=== PATIENT | male | born 1975 | race African-American/Black ===

== ENCOUNTER 2017-02-13 11:23 | Emergency (ER) | payer SELFPAY ==
[~2017-02-13] VITALS: Ht 190.5 cm; Wt 83.0 kg
[2017-02-13 12:29] VITALS: BP 123/75
== END 2017-02-13 14:26 | disposition home or self-care (01) ==
LOC: ER 13:55
DX: S46.812A Strain of other muscles, fascia and tendons at shoulder and upper arm level, left arm, initial encounter (principal); X50.0XXA Overexertion from strenuous movement or load, initial encounter; Y93.89 Activity, other specified; Y92.89 Other specified places as the place of occurrence of the external cause; Y99.8 Other external cause status
CPT/HCPCS: 99283

== ENCOUNTER 2019-02-13 07:32 | Emergency (ER) | payer SELFPAY ==
[~2019-02-13] VITALS: Ht 188 cm; Wt 76.0 kg
[2019-02-13] MEDS ORDERED: SODIUM CHLORIDE 0.9% 1,000 ML IV ONE (08:41)
[2019-02-13 08:58] LABS: BASOPHILS % 0.5 % (0.0-2.0); EOSINOPHILS % 0.8 % (0.0-5.0); HEMATOCRIT. 39.8 % (42.0-52.0); HEMOGLOBIN. 12.9 g/dL (14.0-18.0); LYMPHOCYTES % 19.8 % (20.0-50.0); MEAN CORPUSCULAR HEMOGLOBIN 25.7 pg (28.0-32.0); MEAN CORPUSCULAR VOLUME 79.5 fL (80.0-94.0); MEAN PLATELET VOLUME 8.1 fl (7.4-10.4); MONOCYTES % 4.1 % (2.0-8.0); NEUTROPHILS % 74.8 % (40.0-76.0); PLATELET 349 x1000/uL (130-400); RED CELL DISTRIBUTION WIDTH 15.4 % (11.6-14.6)
[2019-02-13 09:05] LABS: CHLORIDE 104 mEq/L (98-107)
[2019-02-13 10:09] VITALS: BP 121/81
== END 2019-02-13 10:44 | disposition home or self-care (01) ==
LOC: ER 07:54
DX: R53.1 Weakness (principal)
CPT/HCPCS: 36415; 71045; 80053; 85025; 93005; 96360; 99284; J7030

== ENCOUNTER 2019-02-18 02:25 | Emergency (ER) | payer MEDICAID ==
[~2019-02-18] VITALS: Ht 188 cm; Wt 80.0 kg
[2019-02-18 09:42] VITALS: BP 128/67
== END 2019-02-18 09:51 | disposition left against medical advice (07) ==
LOC: ER 02:25
DX: R53.1 Weakness (principal)
CPT/HCPCS: 99283

== ENCOUNTER 2019-02-19 17:02 | Emergency (ER) | payer MEDICAID ==
[~2019-02-19] VITALS: Ht 182.9 cm; Wt 86.0 kg
[2019-02-19 17:21] VITALS: BP 121/88
[2019-02-19 17:59] LABS: CLARITY URINE CLEAR (CLEAR); COLOR URINE DARK YELLOW (YELLOW); KETONES URINE NEGATIVE (NEGATIVE); LEUKOCYTE ESTERASE URINE NEGATIVE (NEGATIVE); NITRITE URINE NEGATIVE (NEGATIVE); OCCULT BLOOD URINE NEGATIVE (NEGATIVE); PROTEIN URINE 1+ (NEGATIVE); SPECIFIC GRAVITY URINE 1.037 (1.005-1.030)
[2019-02-19 18:13] LABS: *AMPHETAMINES SCREEN URINE NEGATIVE (NEGATIVE); *BARBITURATES SCREEN URINE NEGATIVE (NEGATIVE); *BENZODIAZEPINES SCREEN URINE NEGATIVE (NEGATIVE); *COCAINE SCREEN URINE NEGATIVE (NEGATIVE); METHADONE URINE SCREEN NEGATIVE (NEGATIVE)
[2019-02-19 18:14] LABS: CANNABINOID URINE SCREEN NEGATIVE (NEGATIVE); OPIATES URINE SCREEN NEGATIVE (NEGATIVE); PHENCYCLIDINE URINE SCREEN PRESUMTIVE POSITIVE (NEGATIVE)
[2019-02-19 18:27] LABS: BASOPHILS % 0.4 % (0.0-2.0); EOSINOPHILS % 0.6 % (0.0-5.0); HEMATOCRIT. 42.4 % (42.0-52.0); HEMOGLOBIN. 13.8 g/dL (14.0-18.0); LYMPHOCYTES % 17.8 % (20.0-50.0); MEAN CORPUSCULAR HEMOGLOBIN 25.5 pg (28.0-32.0); MEAN CORPUSCULAR VOLUME 78.5 fL (80.0-94.0); MEAN PLATELET VOLUME 8.6 fl (7.4-10.4); MONOCYTES % 6.6 % (2.0-8.0); NEUTROPHILS % 74.6 % (40.0-76.0); PLATELET 330 x1000/uL (130-400); RED BLOOD CELL COUNT 5.39 mill/uL (4.7-6.1); RED CELL DISTRIBUTION WIDTH 15.3 % (11.6-14.6)
[2019-02-19 18:31] LABS: CHLORIDE 109 mEq/L (98-107)
[2019-02-19 18:35] LABS: ETHANOL BLOOD < 10 mg/dL
== END 2019-02-19 19:50 | disposition home or self-care (01) ==
LOC: ER 17:02
DX: R55 Syncope and collapse (principal); T40.995A Adverse effect of other psychodysleptics [hallucinogens], initial encounter; Y92.89 Other specified places as the place of occurrence of the external cause
CPT/HCPCS: 36415; 80053; 80305; 80320; 81003; 85025; 93005; 99284; Z7610; G0480

== ENCOUNTER 2023-07-20 04:52 | Emergency (ER) | payer MEDICAID, OTHER ==
[~2023-07-20] VITALS: Ht 188 cm; Wt 65.5 kg
[2023-07-20 05:12] VITALS: BP 114/69; PULSE 79; RESP 16; TEMP 97.9; O2SAT 98
[2023-07-20] MEDS ORDERED: ACETAMINOPHEN 500MG TABLET PO ONE (05:30)
== END 2023-07-20 06:29 | disposition home or self-care (01) ==
LOC: ER 04:52
DX: M54.2 Cervicalgia (principal); S16.1XXA Strain of muscle, fascia and tendon at neck level, initial encounter; X58.XXXA Exposure to other specified factors, initial encounter; Y93.89 Activity, other specified; Y92.89 Other specified places as the place of occurrence of the external cause; Y99.8 Other external cause status
CPT/HCPCS: 99282

== ENCOUNTER 2023-09-29 23:22 | Emergency (ER) | payer MEDICAID, OTHER ==
[~2023-09-29] VITALS: Ht 188 cm; Wt 79.0 kg
[2023-09-29 23:57] VITALS: BP 143/89; O2SAT 100
[2023-09-30] MEDS ORDERED: TERB30CR8 TP (00:42)
[2023-09-30] MEDS ORDERED: TUSSL MT (00:42)
[2023-09-30 01:01] VITALS: PULSE 85; RESP 16; TEMP 98.2
== END 2023-09-30 01:04 | disposition home or self-care (01) ==
LOC: ER 23:22
DX: B35.3 Tinea pedis (principal)
CPT/HCPCS: 71045; 99283

== ENCOUNTER 2023-11-17 08:53 | Emergency (ER) | payer MEDICAID ==
[~2023-11-17] VITALS: Ht 188 cm; Wt 82.0 kg
[~2023-11-17 08:53] MED LIST: TERB30CR8 TP; TUSSL MT
[2023-11-17 09:02] VITALS: BP 118/71; TEMP 98.3; O2SAT 98
[2023-11-17 09:03] VITALS: PULSE 86; RESP 16
[2023-11-17 09:32] LABS: HEMATOCRIT. 43.2 % (42.0-52.0); HEMOGLOBIN. 13.5 g/dL (14.0-18.0); MEAN CORPUSCULAR HEMOGLOBIN 25.1 pg (28.0-32.0); MEAN CORPUSCULAR HGB CONC 31.2 g/dL (31.0-37.0); MEAN CORPUSCULAR VOLUME 80.4 fL (80.0-94.0); PLATELET 424 x1000/uL (130-400); RED BLOOD CELL COUNT 5.37 mill/uL (4.7-6.1); WHITE BLOOD COUNT 6.9 x1000/uL (4.5-11.0)
[2023-11-17 09:39] LABS: DIFFERENTIAL COMMENT 1
[2023-11-17 09:47] LABS: CLARITY URINE CLEAR (CLEAR); COLOR URINE YELLOW (YELLOW); GLUCOSE URINE NEGATIVE (NEGATIVE); KETONES URINE TRACE (NEGATIVE); LEUKOCYTE ESTERASE URINE NEGATIVE (NEGATIVE); NITRITE URINE NEGATIVE (NEGATIVE); OCCULT BLOOD URINE NEGATIVE (NEGATIVE); PH URINE 5.5 (4.5-8.0); PROTEIN URINE TRACE (NEGATIVE); SPECIFIC GRAVITY URINE 1.034 (1.005-1.030); UROBILINOGEN URINE 0.2 E.U./dL (0.2-1.0)
[2023-11-17 09:48] LABS: ALANINE AMINOTRANSFERASE 9 IU/L (10-49); ALBUMIN 4.5 g/dL (3.2-4.8); ASPARTATE AMINOTRANSFERASE 13 IU/L (<34); BILIRUBIN TOTAL 0.5 mg/dL (0.1-1.0); CALCIUM 9.5 mg/dL (8.7-10.4); CARBON DIOXIDE 28 mEq/L (21-32); CHLORIDE 104 mEq/L (98-107); CREATININE 1.1 mg/dL (0.6-1.3); GLUCOSE 109 mg/dL (70-105); POTASSIUM 4.6 mEq/L (3.5-5.1); PROTEIN TOTAL 8.3 g/dL (6.0-8.3); SODIUM 137 mEq/L (136-145); UREA NITROGEN BLOOD 15 mg/dL (9-23)
[2023-11-17 10:33] LABS: BACTERIA URINE NONE SEEN; MUCUS URINE 1+ /lpf (NONE/TRACE); RBC URINE 0-2 /hpf (0-2); SQUAMOUS EPITHELIAL CELL URINE 1+ /lpf (RARE/1+); WBC URINE 0-2 /hpf (0-2); YEAST URINE NONE SEEN
[2023-11-17] MEDS ORDERED: FAMOTIDINE 20MG TABLET PO ONE (10:45)
[2023-11-17] MEDS ORDERED: ONDANSETRON 4MG ODT PO ONE (10:45)
[2023-11-17] MEDS ORDERED: KETOROLAC 30MG/ML VIAL IM ONE (10:45)
[2023-11-17 10:51] LABS: MICROCYTOSIS 1+; PLATELET ESTIMATE INCREASED
[2023-11-17] MEDS ORDERED: FAMO-135 MT (11:15)
== END 2023-11-17 11:39 | disposition home or self-care (01) ==
LOC: ER 08:53
DX: R10.13 Epigastric pain (principal); R11.2 Nausea with vomiting, unspecified
CPT/HCPCS: 99283; 80053; 81003; 83690; 85025; 36415; 96372; Q0162; J1885

== ENCOUNTER 2023-12-22 07:40 | Emergency (ER) | payer MEDICAID, OTHER ==
[~2023-12-22] VITALS: Ht 188 cm; Wt 81.6 kg
[~2023-12-22 07:40] MED LIST changes: +FAMO-135 MT
[2023-12-22 07:57] VITALS: O2SAT 100
[2023-12-22] MEDS: ACETAMINOPHEN 325MG TABLET PO ONE (08:15)
[2023-12-22] MEDS ORDERED: TOPUD PO (08:19)
[2023-12-22] MEDS ORDERED: AMOX1TAB16 PO (08:19)
[2023-12-22 08:35] VITALS: BP 130/69; PULSE 67; RESP 17; TEMP 98.6
[2023-12-23] MEDS ORDERED: CLIN-194 MT (02:45)
[2023-12-23] MEDS ORDERED: MED4 MT (05:19)
[2023-12-23] MEDS ORDERED: NAPR275T96 MT (05:20)
== END 2023-12-22 08:39 | disposition home or self-care (01) ==
LOC: ER 07:40
DX: J02.9 Acute pharyngitis, unspecified (principal); Z79.899 Other long term (current) drug therapy
CPT/HCPCS: 87070; 87430; 99283

== ENCOUNTER 2023-12-22 23:37 | Emergency (ER) | payer OTHER ==
[~2023-12-22] VITALS: Ht 188 cm; Wt 79.0 kg
[~2023-12-22 23:37] MED LIST changes: +AMOX1TAB16 PO; +TOPUD PO
[2023-12-23 00:32] VITALS: O2SAT 98
[2023-12-23 02:08] LABS: BASOPHILS % 0.3 % (0.0-2.0); DIFFERENTIAL COMMENT 0; EOSINOPHILS % 0.6 % (0.0-5.0); HEMATOCRIT. 34.5 % (42.0-52.0); MEAN CORPUSCULAR HEMOGLOBIN 25.1 pg (28.0-32.0); MEAN CORPUSCULAR HGB CONC 31.9 g/dL (31.0-37.0); MEAN CORPUSCULAR VOLUME 78.6 fL (80.0-94.0); MEAN PLATELET VOLUME 8.4 fl (7.4-10.4); MONOCYTES % 8.8 % (2.0-8.0); NEUTROPHILS % 79.3 % (40.0-76.0); PLATELET 352 x1000/uL (130-400); RED BLOOD CELL COUNT 4.39 mill/uL (4.7-6.1); RED CELL DISTRIBUTION WIDTH 14.8 % (11.6-14.6); WHITE BLOOD COUNT 13.9 x1000/uL (4.5-11.0)
[2023-12-23 02:17] LABS: CALCIUM 8.9 mg/dL (8.7-10.4); CARBON DIOXIDE 28 mEq/L (21-32); CHLORIDE 104 mEq/L (98-107); GLUCOSE 102 mg/dL (70-105); POTASSIUM 4.2 mEq/L (3.5-5.1); SODIUM 137 mEq/L (136-145); UREA NITROGEN BLOOD 11 mg/dL (9-23)
[2023-12-23] MEDS: SODIUM CHLORIDE 0.9% 500 ML IV ONE (02:37)
[2023-12-23] MEDS: DEXAMETHASONE 4MG/ML 1ML VIAL IV SCH (02:37)
[2023-12-23] MEDS: KETOROLAC 15MG/ML VIAL IV ONE (02:37)
[2023-12-23] MEDS ORDERED: CLIN-194 MT (02:45)
[2023-12-23] MEDS ORDERED: CLINDAMYCIN 600 MG in DEXTROSE 5% WATER 50 ML IV ONE (02:45)
[2023-12-23] MEDS: CLINDAMYCIN 600MG PREMIX 50 ML IV NR (03:32)
[2023-12-23] MEDS ORDERED: IOHEXOL-300 100 ML BOTTLE ONE (04:57)
[2023-12-23] MEDS ORDERED: MED4 MT (05:19)
[2023-12-23] MEDS ORDERED: NAPR275T96 MT (05:20)
[2023-12-23 05:42] VITALS: BP 98/51; PULSE 71; RESP 18; TEMP 98.4
== END 2023-12-23 05:46 | disposition home or self-care (01) ==
LOC: ER 23:37
DX: J02.9 Acute pharyngitis, unspecified (principal); Z79.899 Other long term (current) drug therapy
CPT/HCPCS: 99285; 80048; 87430; 85025; 87070; 36415; 70491; 96361; 96365; 96375; Q9967; J1100; J1885; J3490; J7030; Z7610 ×2; J7060

== ENCOUNTER 2023-12-31 16:12 | Emergency (ER) | payer OTHER ==
[~2023-12-31] VITALS: Ht 188 cm; Wt 72.0 kg
[~2023-12-31 16:12] MED LIST changes: +CLIN-194 MT; +MED4 MT; +NAPR275T96 MT
[2023-12-31 16:32] VITALS: O2SAT 96
[2023-12-31] MEDS ORDERED: NON FORMULARY PATIENT HOME MED XX SCH (17:15)
[2023-12-31] MEDS: ACETAMINOPHEN 325MG TABLET PO ONE (17:56)
[2023-12-31] MEDS: CARBAMIDE PEROXIDE 6.5% OTIC SOLN 15ML RIGHT EAR ONE (17:56)
[2023-12-31] MEDS: IBUPROFEN 800MG TABLET PO ONE (17:56)
[2023-12-31] MEDS: VISCOUS LIDOCAINE 2% 15 ML UDC PO NR (17:56)
[2023-12-31] MEDS: CEFTRIAXONE SODIUM 1G VIAL IM ONE (17:56)
[2023-12-31 18:56] VITALS: BP 114/67; PULSE 65; RESP 18; TEMP 99.1
[2024-01-01] MEDS ORDERED: AMOX1TAB16 MT (13:04)
[2024-01-01] MEDS ORDERED: DEX6 MT (13:42)
== END 2023-12-31 19:25 | disposition home or self-care (01) ==
LOC: ER 16:19
DX: J02.9 Acute pharyngitis, unspecified (principal); H61.21 Impacted cerumen, right ear
CPT/HCPCS: 99284; 96372; J0696

== ENCOUNTER 2024-01-01 05:28 | Emergency (ER) | payer OTHER ==
[~2024-01-01] VITALS: Ht 188 cm; Wt 82.0 kg
[2024-01-01 05:39] VITALS: O2SAT 99
[2024-01-01] MEDS: DEXAMETHASONE 10 MG/ML VIAL IV ONE (07:28)
[2024-01-01] MEDS: KETOROLAC 30MG/ML VIAL IV ONE (07:28)
[2024-01-01 07:42] LABS: BASOPHILS % 0.3 % (0.0-2.0); EOSINOPHILS % 0.2 % (0.0-5.0); HEMATOCRIT. 36.5 % (42.0-52.0); HEMOGLOBIN. 11.4 g/dL (14.0-18.0); LYMPHOCYTES % 7.1 % (20.0-50.0); MEAN CORPUSCULAR HEMOGLOBIN 25.1 pg (28.0-32.0); MEAN CORPUSCULAR HGB CONC 31.2 g/dL (31.0-37.0); MEAN CORPUSCULAR VOLUME 80.5 fL (80.0-94.0); MEAN PLATELET VOLUME 7.5 fl (7.4-10.4); MONOCYTES % 4.1 % (2.0-8.0); NEUTROPHILS % 88.3 % (40.0-76.0); PLATELET 535 x1000/uL (130-400); RED BLOOD CELL COUNT 4.53 mill/uL (4.7-6.1); RED CELL DISTRIBUTION WIDTH 15.5 % (11.6-14.6); WHITE BLOOD COUNT 19.7 x1000/uL (4.5-11.0)
[2024-01-01 08:04] LABS: ALANINE AMINOTRANSFERASE 28 IU/L (10-49); ALBUMIN 4.6 g/dL (3.2-4.8); ASPARTATE AMINOTRANSFERASE 45 IU/L (<34); BILIRUBIN TOTAL 0.3 mg/dL (0.1-1.0); CALCIUM 8.9 mg/dL (8.7-10.4); CARBON DIOXIDE 28 mEq/L (21-32); CHLORIDE 105 mEq/L (98-107); GLUCOSE 118 mg/dL (70-105); POTASSIUM 4.3 mEq/L (3.5-5.1); PROTEIN TOTAL 8.6 g/dL (6.0-8.3); SODIUM 138 mEq/L (136-145); UREA NITROGEN BLOOD 15 mg/dL (9-23)
[2024-01-01] MEDS: AMPICILLIN SOD/SULBACTAM NA 3 G in SODIUM CHLORIDE 0.9% 100 ML IV SCH (08:05)
[2024-01-01] MEDS: IOHEXOL-350 100 ML BOTTLE ONE (09:16)
[2024-01-01] MEDS ORDERED: AMOX1TAB16 MT (13:04)
[2024-01-01] MEDS: LIDOCAINE HCL/PF 1% 10 MG/ML 5ML VIAL INFIL ONE (13:17)
[2024-01-01] MEDS: PHENOL/SODIUM PHENOLATE 1.4% SRPAY 177ML MM ONE (13:28)
[2024-01-01] MEDS ORDERED: DEX6 MT (13:42)
[2024-01-01 15:09] VITALS: BP 110/61; PULSE 71; RESP 14; TEMP 98
== END 2024-01-01 15:20 | disposition home or self-care (01) ==
LOC: ER 05:28
DX: J36 Peritonsillar abscess (principal); Z79.899 Other long term (current) drug therapy
CPT/HCPCS: 80053; 85025; 85610; 36415; 70487; 10060; 96365; 96366; 96375; 99285; Q9967; J0295; J1100; J1885; J3490; J7050; Z7610 ×2

== ENCOUNTER 2024-01-07 02:13 | Emergency (ER) | payer OTHER ==
[~2024-01-07] VITALS: Ht 188 cm; Wt 79.0 kg
[~2024-01-07 02:13] MED LIST changes: +AMOX1TAB16 MT; +DEX6 MT
[2024-01-07 02:35] VITALS: BP 113/61; PULSE 86; RESP 16; O2SAT 98
[2024-01-07] MEDS: ACETAMINOPHEN 325MG TABLET PO ONE (02:45)
[2024-01-07 05:19] VITALS: TEMP 98.8
[2024-01-07] MEDS: ACETAMINOPHEN 325MG TABLET PO NR (05:19)
[2024-01-07] MEDS ORDERED: IBUP-2028 PO (06:20)
== END 2024-01-07 06:37 | disposition home or self-care (01) ==
LOC: ER 02:13
DX: S00.83XA Contusion of other part of head, initial encounter (principal); Z79.899 Other long term (current) drug therapy; X58.XXXA Exposure to other specified factors, initial encounter; Y93.89 Activity, other specified; Y92.89 Other specified places as the place of occurrence of the external cause; Y99.8 Other external cause status
CPT/HCPCS: 70486; 99284

== ENCOUNTER 2024-05-23 01:26 | Emergency (ER) | payer MEDICAID ==
[~2024-05-23] VITALS: Ht 188 cm; Wt 79.3 kg
[~2024-05-23 01:26] MED LIST changes: +IBUP-2028 PO
[2024-05-23 02:09] VITALS: BP 123/67; TEMP 98.6; O2SAT 99
[2024-05-23 02:11] VITALS: PULSE 88; RESP 20
[2024-05-23] MEDS ORDERED: P50 MT (06:41)
[2024-05-23] MEDS ORDERED: AMOX1TAB16 MT (06:41)
[2024-05-23] MEDS ORDERED: ALBU6.7H15 INH (06:41)
[2024-05-23] MEDS ORDERED: TOPUD PO (06:42)
== END 2024-05-23 07:23 | disposition home or self-care (01) ==
LOC: ER 01:26
DX: J20.9 Acute bronchitis, unspecified (principal); F17.200 Nicotine dependence, unspecified, uncomplicated; Z79.899 Other long term (current) drug therapy
CPT/HCPCS: 71045; 99283

== ENCOUNTER 2024-08-13 11:44 | Emergency (ER) | payer MEDICAID ==
[~2024-08-13] VITALS: Ht 188 cm; Wt 81.0 kg
[~2024-08-13 11:44] MED LIST changes: +ALBU6.7H15 INH; -MED4 MT; +METH4TAB95 MT; +P50 MT
[2024-08-13 11:48] VITALS: O2SAT 100
[2024-08-13 11:50] VITALS: BP 113/73; PULSE 85; RESP 16; TEMP 98.4; O2SAT 98
[2024-08-13 12:16] LABS: BASOPHILS % 0.3 % (0.0-2.0); DIFFERENTIAL COMMENT 0; EOSINOPHILS % 4.4 % (0.0-5.0); HEMATOCRIT. 42.8 % (42.0-52.0); HEMOGLOBIN. 13.2 g/dL (14.0-18.0); LYMPHOCYTES % 14.5 % (20.0-50.0); MEAN CORPUSCULAR HEMOGLOBIN 24.9 pg (28.0-32.0); MEAN CORPUSCULAR HGB CONC 30.7 g/dL (31.0-37.0); MEAN PLATELET VOLUME 7.4 fl (7.4-10.4); MONOCYTES % 6.5 % (2.0-8.0); NEUTROPHILS % 74.3 % (40.0-76.0); PLATELET 361 x1000/uL (130-400); RED BLOOD CELL COUNT 5.29 mill/uL (4.7-6.1); RED CELL DISTRIBUTION WIDTH 16.3 % (11.6-14.6); WHITE BLOOD COUNT 5.6 x1000/uL (4.5-11.0)
[2024-08-13 12:21] LABS: CHLORIDE 106 mEq/L (98-107); POTASSIUM 4.1 mEq/L (3.5-5.1); SODIUM 137 mEq/L (136-145)
[2024-08-13 12:22] LABS: CALCIUM 9.2 mg/dL (8.7-10.4); CARBON DIOXIDE 28 mEq/L (21-32)
[2024-08-13 12:27] LABS: GLUCOSE 103 mg/dL (70-105); UREA NITROGEN BLOOD 13 mg/dL (9-23)
[2024-08-13 12:29] LABS: ALANINE AMINOTRANSFERASE 14 IU/L (10-49); ALBUMIN 3.9 g/dL (3.2-4.8); ASPARTATE AMINOTRANSFERASE 18 IU/L (<34); BILIRUBIN TOTAL 0.3 mg/dL (0.1-1.0); PROTEIN TOTAL 8.5 g/dL (6.0-8.3)
[2024-08-13 12:36] LABS: BILIRUBIN DIRECT < 0.1 mg/dL (<=3.0)
[2024-08-13] MEDS ORDERED: MAGNESIUM/ALUMINUM HYDROXIDE/SIMETHICONE 30ML UDC PO ONE (12:45)
[2024-08-13] MEDS ORDERED: FAMOTIDINE 20MG TABLET PO ONE (12:45)
[2024-08-13 13:35] LABS: CLARITY URINE CLEAR (CLEAR); COLOR URINE YELLOW (YELLOW); GLUCOSE URINE NEGATIVE (NEGATIVE); KETONES URINE TRACE (NEGATIVE); LEUKOCYTE ESTERASE URINE 2+ (NEGATIVE); NITRITE URINE NEGATIVE (NEGATIVE); OCCULT BLOOD URINE NEGATIVE (NEGATIVE); PH URINE 5.5 (4.5-8.0); PROTEIN URINE TRACE (NEGATIVE); SPECIFIC GRAVITY URINE 1.032 (1.005-1.030)
[2024-08-13 13:50] LABS: MUCUS URINE 3+ /lpf (NONE/TRACE); SQUAMOUS EPITHELIAL CELL URINE 1+ /lpf (RARE/1+)
[2024-08-13 13:51] LABS: RBC URINE 0-2 /hpf (0-2)
[2024-08-13 13:52] LABS: BACTERIA URINE 1+; WBC URINE 15-25 /hpf (0-2)
[2024-08-13] MEDS ORDERED: CEFP100S5 MT (15:27)
[2024-08-13] MEDS ORDERED: ALBU18HF2 IH (15:28)
== END 2024-08-13 16:39 | disposition home or self-care (01) ==
LOC: ER 11:44
DX: N39.0 Urinary tract infection, site not specified (principal); Z76.0 Encounter for issue of repeat prescription; Z79.899 Other long term (current) drug therapy
CPT/HCPCS: 36415; 80048; 80076; 81003; 85025; 99283

== ENCOUNTER 2024-09-06 07:54 | Emergency (ER) | payer MEDICAID ==
[~2024-09-06] VITALS: Ht 185.4 cm; Wt 80.0 kg
[~2024-09-06 07:54] MED LIST changes: +ALBU18HF2 IH; +CEFP100S5 MT
[2024-09-06 08:03] VITALS: BP 123/77; O2SAT 100
[2024-09-06] MEDS: ONDANSETRON 4MG ODT PO ONE (08:25)
[2024-09-06 08:26] LABS: BASOPHILS % 0.3 % (0.0-2.0); EOSINOPHILS % 6.6 % (0.0-5.0); HEMATOCRIT. 39.5 % (42.0-52.0); HEMOGLOBIN. 12.5 g/dL (14.0-18.0); LYMPHOCYTES % 16.6 % (20.0-50.0); MEAN CORPUSCULAR HEMOGLOBIN 25.7 pg (28.0-32.0); MEAN CORPUSCULAR HGB CONC 31.6 g/dL (31.0-37.0); MEAN CORPUSCULAR VOLUME 81.2 fL (80.0-94.0); MEAN PLATELET VOLUME 7.2 fl (7.4-10.4); MONOCYTES % 7.6 % (2.0-8.0); NEUTROPHILS % 68.9 % (40.0-76.0); PLATELET 403 x1000/uL (130-400); RED BLOOD CELL COUNT 4.86 mill/uL (4.7-6.1); RED CELL DISTRIBUTION WIDTH 16.4 % (11.6-14.6); WHITE BLOOD COUNT 6.3 x1000/uL (4.5-11.0)
[2024-09-06 08:42] LABS: CHLORIDE 106 mEq/L (98-107); SODIUM 141 mEq/L (136-145)
[2024-09-06 08:43] LABS: CALCIUM 9.1 mg/dL (8.7-10.4); CARBON DIOXIDE 29 mEq/L (21-32)
[2024-09-06 08:48] LABS: CREATININE 0.9 mg/dL (0.6-1.3); GLUCOSE 99 mg/dL (70-105); UREA NITROGEN BLOOD 14 mg/dL (9-23)
[2024-09-06 09:25] VITALS: PULSE 85; RESP 16; TEMP 36.94740; O2SAT 100
== END 2024-09-06 09:24 | disposition home or self-care (01) ==
LOC: ER 07:54
DX: R11.2 Nausea with vomiting, unspecified (principal); Z79.899 Other long term (current) drug therapy
CPT/HCPCS: 99283; 80048; 83690; 85025; 36415; Q0162

== ENCOUNTER 2024-10-23 06:11 | Emergency (ER) | payer MEDICAID ==
[~2024-10-23] VITALS: Ht 182.9 cm; Wt 105.0 kg
[2024-10-23 06:27] VITALS: O2SAT 99
[2024-10-23] MEDS ORDERED: PERM60CR4 TP (06:51)
[2024-10-23 06:54] VITALS: BP 128/73; PULSE 99; RESP 16; TEMP 98.3; O2SAT 98
== END 2024-10-23 06:58 | disposition home or self-care (01) ==
LOC: ER 06:34
DX: S00.06XA Insect bite (nonvenomous) of scalp, initial encounter (principal); Z79.899 Other long term (current) drug therapy; X58.XXXA Exposure to other specified factors, initial encounter; Y93.89 Activity, other specified; Y92.89 Other specified places as the place of occurrence of the external cause; Y99.8 Other external cause status
CPT/HCPCS: 99282

== ENCOUNTER 2024-11-03 22:00 | Emergency (ER) | payer MEDICAID ==
[~2024-11-03] VITALS: Ht 188 cm; Wt 74.8 kg
[~2024-11-03 22:00] MED LIST changes: +PERM60CR4 TP
[2024-11-03 22:09] VITALS: BP 130/99; RESP 16; TEMP 98.8; O2SAT 98
[2024-11-03 22:11] VITALS: PULSE 98; O2SAT 100
[2024-11-04] MEDS: ACETAMINOPHEN 325MG TABLET PO ONE (02:56)
[2024-11-04] MEDS ORDERED: IBUP-2028 MT (03:15)
== END 2024-11-04 03:27 | disposition home or self-care (01) ==
LOC: ER 22:00
DX: M79.645 Pain in left finger(s) (principal); Z79.1 Long term (current) use of non-steroidal anti-inflammatories (NSAID)
CPT/HCPCS: 73130; 99283

== ENCOUNTER 2024-11-06 07:16 | Emergency (ER) | payer MEDICAID ==
[~2024-11-06] VITALS: Ht 188 cm; Wt 79.0 kg
[~2024-11-06 07:16] MED LIST changes: +IBUP-2028 MT
[2024-11-06 07:29] VITALS: O2SAT 98
[2024-11-06 08:34] LABS: BASOPHILS % 0.5 % (0.0-2.0); CHLORIDE 101 mEq/L (98-107); EOSINOPHILS % 3.4 % (0.0-5.0); HEMATOCRIT. 33.9 % (42.0-52.0); MEAN CORPUSCULAR HEMOGLOBIN 26.2 pg (28.0-32.0); MEAN CORPUSCULAR HGB CONC 32.4 g/dL (31.0-37.0); MEAN CORPUSCULAR VOLUME 80.8 fL (80.0-94.0); MEAN PLATELET VOLUME 7.4 fl (7.4-10.4); MONOCYTES % 5.4 % (2.0-8.0); NEUTROPHILS % 76.7 % (40.0-76.0); PLATELET 416 x1000/uL (130-400); POTASSIUM 4.1 mEq/L (3.5-5.1); RED BLOOD CELL COUNT 4.19 mill/uL (4.7-6.1); RED CELL DISTRIBUTION WIDTH 15.5 % (11.6-14.6); SODIUM 136 mEq/L (136-145); WHITE BLOOD COUNT 9.2 x1000/uL (4.5-11.0)
[2024-11-06 08:35] LABS: CARBON DIOXIDE 29 mEq/L (21-32)
[2024-11-06 08:36] LABS: CALCIUM 8.9 mg/dL (8.7-10.4)
[2024-11-06 08:40] LABS: CREATININE 0.8 mg/dL (0.6-1.3); GLUCOSE 91 mg/dL (70-105)
[2024-11-06 08:41] LABS: UREA NITROGEN BLOOD 15 mg/dL (9-23)
[2024-11-06] MEDS: CLINDAMYCIN HCL 150MG CAPSULE PO SCH (09:21)
[2024-11-06] MEDS: DEXAMETHASONE 10 MG/ML VIAL IM NR (09:23)
[2024-11-06] MEDS: IBUPROFEN 800MG TABLET PO NR (09:39)
[2024-11-06] MEDS ORDERED: IOHEXOL-300 100 ML BOTTLE ONE (10:04)
[2024-11-06] MEDS ORDERED: IBUP-2030 MT (11:38)
[2024-11-06] MEDS ORDERED: CLIN-194 MT (11:38)
[2024-11-06 12:10] VITALS: BP 143/72; PULSE 78; RESP 18; TEMP 36.78072; O2SAT 98
[2024-11-06] MEDS ORDERED: PERM60CR4 TP (12:19)
[2024-11-06] MEDS ORDERED: P50 MT (12:19)
== END 2024-11-06 12:42 | disposition home or self-care (01) ==
LOC: ER 07:16
DX: L03.012 Cellulitis of left finger (principal); Z79.1 Long term (current) use of non-steroidal anti-inflammatories (NSAID)
CPT/HCPCS: 80048; 85025; 36415; 84145; 73140; 73201; 29130; 96372; 99285; Q9967; J1100; Z7610 ×3; A4565; A4606

== ENCOUNTER 2025-01-27 09:27 | Emergency (ER) | payer MEDICAID ==
[~2025-01-27] VITALS: Ht 190.5 cm; Wt 67.6 kg
[~2025-01-27 09:27] MED LIST changes: +IBUP-2030 MT
[2025-01-27 09:38] VITALS: O2SAT 100
[2025-01-27] MEDS: IBUPROFEN 600MG TABLET PO ONE (10:16)
[2025-01-27 10:18] LABS: BASOPHILS % 0.8 % (0.0-2.0); DIFFERENTIAL COMMENT 0; EOSINOPHILS % 5.4 % (0.0-5.0); HEMATOCRIT. 35.4 % (42.0-52.0); HEMOGLOBIN. 10.7 g/dL (14.0-18.0); LYMPHOCYTES % 21.3 % (20.0-50.0); MEAN CORPUSCULAR HEMOGLOBIN 24.8 pg (28.0-32.0); MEAN CORPUSCULAR HGB CONC 30.2 g/dL (31.0-37.0); MEAN CORPUSCULAR VOLUME 82.2 fL (80.0-94.0); MEAN PLATELET VOLUME 7.6 fl (7.4-10.4); MONOCYTES % 7.8 % (2.0-8.0); NEUTROPHILS % 64.7 % (40.0-76.0); PLATELET 408 x1000/uL (130-400); RED CELL DISTRIBUTION WIDTH 14.7 % (11.6-14.6); WHITE BLOOD COUNT 5.4 x1000/uL (4.5-11.0)
[2025-01-27 10:28] LABS: CHLORIDE 106 mEq/L (98-107); POTASSIUM 3.9 mEq/L (3.5-5.1); SODIUM 143 mEq/L (136-145)
[2025-01-27 10:34] LABS: UREA NITROGEN BLOOD 17 mg/dL (9-23)
[2025-01-27 10:39] LABS: CALCIUM 9.2 mg/dL (8.7-10.4)
[2025-01-27 10:41] LABS: CARBON DIOXIDE 28 mEq/L (21-32)
[2025-01-27 10:48] LABS: GLUCOSE 122 mg/dL (70-105)
[2025-01-27 11:15] VITALS: BP 133/82; PULSE 78; RESP 18; TEMP 36.7; O2SAT 100
== END 2025-01-27 14:48 | disposition home or self-care (01) ==
LOC: ER 09:27
DX: R07.89 Other chest pain (principal); Z79.899 Other long term (current) drug therapy
CPT/HCPCS: 80048; 85025; 36415; 71045; 99284; Z7610; A4606

== ENCOUNTER 2025-04-17 09:07 | Emergency (ER) | payer MEDICAID ==
[~2025-04-17] VITALS: Ht 172.7 cm; Wt 68.0 kg
[2025-04-17 09:12] VITALS: BP 113/67; PULSE 86; RESP 18; TEMP 36.6; O2SAT 100
== END 2025-04-17 10:44 | disposition home or self-care (01) ==
LOC: ER 09:17
DX: S09.93XA Unspecified injury of face, initial encounter (principal); F17.210 Nicotine dependence, cigarettes, uncomplicated; Z79.1 Long term (current) use of non-steroidal anti-inflammatories (NSAID); W22.8XXA Striking against or struck by other objects, initial encounter; Y93.89 Activity, other specified; Y92.89 Other specified places as the place of occurrence of the external cause; Y99.8 Other external cause status
CPT/HCPCS: 70486; 99284

== ENCOUNTER 2025-06-04 08:18 | Emergency (ER) | payer MEDICAID ==
[~2025-06-04] VITALS: Ht 190.5 cm; Wt 75.0 kg
[~2025-06-04 08:18] MED LIST changes: +PERM60CR20 TP; -PERM60CR4 TP
[2025-06-04 08:30] VITALS: O2SAT 100
[2025-06-04] MEDS: HYDROCODONE/ACETAMINOPHEN 10/325MG TABLET PO ONE (09:21)
[2025-06-04] MEDS: IBUPROFEN 800MG TABLET PO ONE (09:21)
[2025-06-04] MEDS ORDERED: AMOX1TAB16 MT (10:46)
[2025-06-04 11:01] VITALS: BP 113/66; PULSE 70; RESP 14; TEMP 36.9; O2SAT 100
== END 2025-06-04 11:05 | disposition home or self-care (01) ==
LOC: ER 08:18
DX: S62.337A Displaced fracture of neck of fifth metacarpal bone, left hand, initial encounter for closed fracture (principal); Z79.1 Long term (current) use of non-steroidal anti-inflammatories (NSAID); Z79.899 Other long term (current) drug therapy; W22.8XXA Striking against or struck by other objects, initial encounter; Y93.89 Activity, other specified; Y92.89 Other specified places as the place of occurrence of the external cause; Y99.8 Other external cause status
CPT/HCPCS: 29125; 70486; 73110; 73130; 99284

== ENCOUNTER 2025-06-10 08:31 | Emergency (ER) | payer MEDICAID ==
[~2025-06-10] VITALS: Ht 188 cm; Wt 76.0 kg
[~2025-06-10 08:31] MED LIST changes: -PERM60CR20 TP; +PERM60CR4 TP
[2025-06-10 08:37] VITALS: O2SAT 100
[2025-06-10 09:19] VITALS: BP 110/62; PULSE 88; RESP 16; TEMP 36.9; O2SAT 100
== END 2025-06-10 09:21 | disposition home or self-care (01) ==
LOC: ER 08:31
DX: S69.92XA Unspecified injury of left wrist, hand and finger(s), initial encounter (principal); Z00.00 Encounter for general adult medical examination without abnormal findings; Z53.21 Procedure and treatment not carried out due to patient leaving prior to being seen by health care provider; X58.XXXA Exposure to other specified factors, initial encounter; Y93.89 Activity, other specified; Y92.89 Other specified places as the place of occurrence of the external cause; Y99.8 Other external cause status

== ENCOUNTER 2025-06-25 13:20 | Emergency (ER) | payer MEDICAID ==
[~2025-06-25] VITALS: Ht 177.8 cm; Wt 75.0 kg
[~2025-06-25 13:20] MED LIST changes: +PERM60CR20 TP; -PERM60CR4 TP
[2025-06-25 13:48] VITALS: TEMP 36.6; O2SAT 100
[2025-06-25] MEDS: IBUPROFEN 600MG TABLET PO ONE (15:18)
[2025-06-25] MEDS ORDERED: IBUP-1455 MT (15:43)
[2025-06-25 17:38] VITALS: BP 139/87; PULSE 69; RESP 18; O2SAT 97
== END 2025-06-25 17:38 | disposition home or self-care (01) ==
LOC: ER 13:20
DX: S62.397D Other fracture of fifth metacarpal bone, left hand, subsequent encounter for fracture with routine healing (principal); Z79.1 Long term (current) use of non-steroidal anti-inflammatories (NSAID); X58.XXXD Exposure to other specified factors, subsequent encounter
CPT/HCPCS: 99283; 73130; 29125; A6449